=== PATIENT | female | born 1990 | race Caucasian/White ===

== ENCOUNTER 2018-08-07 11:48 | Observation (INO) | payer MEDICAID ==
[~2018-08-07] VITALS: Ht 154.9 cm; Wt 76.7 kg
[2018-08-07] MEDS ORDERED: PREN1TAB80 PO (12:44)
[2018-08-07 12:50] VITALS: BP 131/75
== END 2018-08-07 14:20 | disposition home or self-care (01) ==
LOC: 4S 11:48 → UNDODISOB 14:29
PROVIDERS: ADMIT Obstetrics & Gynecology; ATTEND Obstetrics & Gynecology
DX: O46.92 Antepartum hemorrhage, unspecified, second trimester (principal); O26.892 Other specified pregnancy related conditions, second trimester; R10.9 Unspecified abdominal pain; Z3A.21 21 weeks gestation of pregnancy
CPT/HCPCS: 59025; 76811; G0378